=== PATIENT | female | born 1940 | race Caucasian/White ===

== ENCOUNTER 2018-12-22 07:47 | Inpatient (IN) | payer MEDICARE, OTHER ==
[2018-12-22] VITALS (14 sets, daily range): BP systolic 77–157; BP diastolic 46–84; PULSE 55–64; TEMP 97.3–97.9
[~2018-12-22] VITALS: Ht 162.6 cm; Wt 90.1 kg
[~2018-12-22 07:47] MED LIST: FOLIC ACID 40400 MCG PO; FOLIC ACID0.4 MG PO; MODURETIC 5/501 TAB PO; SLOW FE47.5 MG PO; VITAMIN C BUFF500 MG PO
[2018-12-22] MEDS ORDERED: ELIQUIS 5MG PO (08:31)
[2018-12-22 08:32] LABS: HEMATOCRIT 44.2 % (37.0-47.0); HEMOGLOBIN 14.3 g/dl (12.5-16.0); MEAN CELL VOLUME 87 fl (80.0-100.0); MEAN CORPUSCULAR HEMOGLOBIN 28 pg (27.0-31.0); MEAN CORPUSCULAR HGB CONC 32 g/dl (33.0-37.0); MEAN PLATELET VOLUME 9.6 fl (7.4-10.4); PLATELET COUNT 233 K/mm3 (130-400); RED BLOOD COUNT 5.07 M/mm3 (4.10-5.30); REDCELL DISTRIBUTION WIDTH-CV 13.2 % (11.5-14.5)
[2018-12-22] MEDS ORDERED: CATAPRES 0.1MG0.1 MG PO (08:32)
[2018-12-22] MEDS ORDERED: NORVASC 5MG5 MG/TAB PO (08:33)
[2018-12-22] MEDS ORDERED: FLONASEALLERGY NS (08:34)
[2018-12-22] MEDS ORDERED: MAGNESIUM CITR100 MG PO (08:34)
[2018-12-22 08:35] LABS: INR 0.9 (0.8-3.0); PROTHROMBIN TIME 10.4 SECONDS (9.7-12.8)
[2018-12-22 08:41] LABS: CALCIUM 9.3 mg/dL (8.4-10.2); CREATININE, serum 0.53 (0.52-1.25); POTASSIUM 4.4 mmol/L (3.4-5.0)
--- NOTE | 2018-12-22 09:13 | NUR ---
Pt to procedure,report to Teddy Siegel.
--- NOTE | 2018-12-22 09:22 | NUR ---
SEE MERGE DOCUMENTATION FOR MEDICATION ADMINISTRATION TIMES AND INTRA/POST PROCEDURE SEDATION ASSESSMENTS.
--- NOTE | 2018-12-22 11:30 | NUR ---
PATIENT ADMITTED FLOOR AT THIS TIME. ICE PACK PROVIDED FOR SWELLING. DRESSING CLEAN DRY AND IN TACT, POST OP VITALS SIGNS BEING OBTAINED, HOB 30 DEGREES, PROVIDED PATIENT WITH NEW SOTALOL DOSE AT THIS TIME, SLING IN TACT TO LEFT ARM.
--- NOTE | 2018-12-22 16:00 | NUR ---
PATIENT COMPLAINING OF SOME EPIGASTRIC PAIN AT 1320, SOME SHORTNESS OF BREATH WAS NOTED WELL, OBTAINED ORDER FOR MAALOX, PROVIDED TO PATIENT, SOME NOTED PAIN RELIEF AFTERWARDS, WILL CONTINUE TO MONITOR.
--- NOTE | 2018-12-22 17:00 | NUR ---
PATIENT STILL EXHIBITING COMPLAINTS OF PAIN TO UPPER GASTRIC AREA, WILL PROVIDE PRN NORCO, ATTEMPTED TO CALL PROVIDER FOR NEW ORDER AND UNABLE TO GET AHOLD OF HIM AT THIS TIME. PATIENT HAS ICE TO CHEST AND UPPER GASTRIC AREA. WILL CONTINUE TO MONITOR.
--- NOTE | 2018-12-22 19:00 | NUR ---
THIS NURSE PRECEPTING NEVAEH GREENBERG. THIS NURSE VERIFIED AND WENT THROUGH ALL CHATING WITH NEVAEH THIS SHIFT
--- NOTE | 2018-12-22 19:26 | NUR ---
REPORT GIVEN TO MARIAJOSE GREENBERG.
--- NOTE | 2018-12-22 20:10 | NUR ---
Shift assessment complete. Pt resting in bed, awake, a&o, cooperative c cares. Pt continued c/o pain to chest R >L. Pt also c/o being "very short of breath"; pt talks slowly in broken sentences to this RN but has been observed speaking w family et talking on her cell phone in full relaxe sentences. Public Affairs Specialist on-call notified et new orders recieved. Pt provided c Buckley, Temazepam et Maalox at this time. Pacemaker site et loop recorder removal site to L chest s complication, dressings C/D/I. Ice packs in place and sling to LUE. Tele in place. Pt denies further needs. Call light in reach, will monitor closely.
[2018-12-23] VITALS (7 sets, daily range): BP systolic 101–127; BP diastolic 50–71; PULSE 59–81; TEMP 97.2–98.1
--- NOTE | 2018-12-23 05:52 | NUR ---
Pt resting in bed. Pt has rested well this shift c few needs. PRN pain aviation medicine specialist x2 this shift for chest discomfort. Pt has denied continued SOB. Pt denies needs at this time. Call light in reach.
[2018-12-23 07:08] LABS: BASO % 0.2 % (0.0-2.0); EOS # 0.2 (0.0-0.7); EOS % 1.8 % (0-4.0); GRAN # 7.5 (1.4-6.5); GRAN % 70.8 % (42.2-75.2); HEMATOCRIT 39.6 % (37.0-47.0); HEMOGLOBIN 12.8 g/dl (12.5-16.0); LYMPH # 1.9 (1.2-3.4); LYMPH % 18.5 % (20.0-51.0); MEAN CELL VOLUME 88 fl (80.0-100.0); MEAN CORPUSCULAR HEMOGLOBIN 29 pg (27.0-31.0); MEAN CORPUSCULAR HGB CONC 32 g/dl (33.0-37.0); MEAN PLATELET VOLUME 10.3 fl (7.4-10.4); MONO # 0.9 (0.1-0.6); MONO % 8.3 % (1.7-9.3); PLATELET COUNT 205 K/mm3 (130-400); RED BLOOD COUNT 4.49 M/mm3 (4.10-5.30)
[2018-12-23 07:21] LABS: CALCIUM 8.3 mg/dL (8.4-10.2); CREATININE, serum 0.53 (0.52-1.25); MAGNESIUM 2.3 mg/dL (1.6-2.3)
--- NOTE | 2018-12-23 11:52 | NUR ---
SHAWNA met with the patient and patient's daughters to discuss discharge plan. The patient lives alone in [place]. She states that her daughter, Vikram, lives in [place]. She reports independence with ADLs and has a cane, walker, wheelchair, [id number], and stool riser. The patient's PCP is Dr. Jose Peacock and she receives her medications at [facility]. She reports no difficulties obtaining her meds. The patient did have questions about how much her new medication, Sotalol, would cost. SW to [facility] at her preferred pharmacy. The patient does not have advanced directives in EMR, but the patient reports that she does have them completed and that her daughter, Vikram, is her DPOA-HC. The patient's other daughter reports that Vikram could fax a copy of it to the hospital. SHAWNA provided the daughter with medical's fax number. The patient plans to return home upon discharge. No additional needs at this time.
--- NOTE | 2018-12-23 13:00 | NUR ---
PT WAS UP WALKING IN HALLS TODAY, DAUGHTERS ASSISTING PT. THIS NURES SAW PT UP WALKING, PT WAS NEAR ROOM 354 IN [place], SO PT DID WALK A DISTANCE. WAS FIRST TIME UP WALKING FARTHER THEN ROOM SINCE PROCEDURE YESTERDAY.
--- NOTE | 2018-12-23 16:00 | NUR ---
PT HAD C/O PAIN THROUGHOUT SHIFT AND RECIEVED PRN NORCO ABLE TO. THIS NURSE DID CHECK ON PT THIS AFTERNOON AT APPROX 1400, PT APPEARED TO BE SLEEPING, WITH CPAP ON, 30 MINS LATER PT CALLED SUPERVISOR [employer] LIGHT AND STATED THAT HE PAIN WAS OUT OF CONTROL AND THAT SHE NEEDED PAIN MEDICATION AND THAT SHE WAS CONTINUING TO HAVE PAIN WHEN BREATHING AND RT CHEST PAIN THAT WAS STARTING TO HAVE PAIN EXTEMINDING TO THE LEFT SIDE NEAR HE PACEMAKER. THIS NURSE ASSESSED INSITION SITE, NO ABNORMALITIES NOTED. PT CONTINUES TO HAVE ICE ON LT SIDE AND RT SIDE OF CHEST. FAMILY WAS OUT OF FACILITY THIS AFTERNOON AND RETURNED APPROX 1500. PT DAUGHTERS UPSET STATING THAT THEY KNOW THE PT AND SHE IS NOT HEALING TYPICALLY AND THAT THEY THINK THE SOTOLOL IS CAUSING THE ISSUES OR THAT THE PT MAY NEED A CT, AND STATED THAT SHE MITE HAVE A BLOOD CLOT. THIS NURSE CALL DOCTOR VONDA THAT WAS SUPERVISOR [employer]AR TODAY ABOUT PT AND C/O PAIN AND INFORMED OF SITUATION. PROVIDER ORDERED TORADOL AND ATIVAN PRN. VONDA STATED THAT SINCE SHE WAS STARTED ON THE ELIQUIS THAT SHE DIDNT FEEL THE NEED FOR A CT, AND THAT IF SHE HAD A BLOOD CLOT THE ELIQUIS WOULD BE THE PREVENTION FOR IT. THIS NURSE ADMINITERED ATIVAN AND TORADOL TO PT. THIS NURSE HAS PLACED PT ON O2 AT THIS TIME SATS WHERE 92%, PT WAS 97% AFTERWARD.
--- NOTE | 2018-12-23 19:04 | NUR ---
PT STATED THAT THE SHE WAS FEELING BETTER SINCE THE ATIVAN, IT HAD HELPED HER TO CALM DOWN TO CATCH HER BREATH MORE. THE TORADOL HELPED CONTROL THE MAIN MORE WELL. STATED SHE WAS CURRENTLY FEELING BETTER, NOT 100% BUT ABLE TO BREATHE WITHOUT PAIN.
[2018-12-24 03:28] VITALS: BP 114/56; PULSE 59; TEMP 98
--- NOTE | 2018-12-24 05:10 | NUR ---
DAILY EKG OBTAINED SHOWING ST ELEVATION. NEW CHANGES FROM 12 LEAD EKG ON 12/23/18. DR FERRARI NOTIFIED. ORDER RECEIVED FOR TROPONIN. NO OTHER ORDERS RECEIVED AT THIS TIME.
[2018-12-24 06:33] LABS: HEMOGLOBIN 11.6 g/dl (12.5-16.0); MEAN CELL VOLUME 87 fl (80.0-100.0); MEAN CORPUSCULAR HEMOGLOBIN 28 pg (27.0-31.0); MEAN CORPUSCULAR HGB CONC 33 g/dl (33.0-37.0); MEAN PLATELET VOLUME 10.5 fl (7.4-10.4); PLATELET COUNT 174 K/mm3 (130-400); RED BLOOD COUNT 4.09 M/mm3 (4.10-5.30); REDCELL DISTRIBUTION WIDTH-CV 13.2 % (11.5-14.5)
[2018-12-24 06:40] LABS: ANION GAP 10 mmol/L (7-16); BLOOD UREA NITROGEN 18 mg/dL (7-17); CALCIUM 8.2 mg/dL (8.4-10.2); CARBON DIOXIDE 26 mmol/L (22-30); GLUCOSE 111 mg/dL (74-106); HEMATOCRIT 35.6 % (37.0-47.0); MAGNESIUM 2.3 mg/dL (1.6-2.3); POTASSIUM 4.1 mmol/L (3.4-5.0); SODIUM 125 mmol/L (137-145)
[2018-12-24 06:42] LABS: CHLORIDE 89 mmol/L (98-107)
[2018-12-24 06:51] LABS: TROPONIN-I < 0.012 ng/mL (0.000-0.035)
[2018-12-24 07:15] LABS: BAND 8 % (0-10); EOSINOPHIL 3 % (0-4); LYMPHOCYTE 26 % (20.0-51.0); NEUTROPHILS 60 % (42.0-75.2)
[2018-12-24 07:16] LABS: PLATELET ESTIMATE NORMAL (NORMAL)
--- NOTE | 2018-12-24 07:47 | NUR ---
TROPONIN RECEIVED WNL. REPORTS RELIEF OF PAIN AFTER IV TORADOL.
--- NOTE | 2018-12-24 08:30 | NUR ---
Assessment complete. Pt ambulating in room with assist from daughter, reports pain to left chest 6-7 out of 10 on pain scale that worsens with movement. Pt also reports dyspnea with exertion, eye twitching and feeling shaky in upper ext. Saline lock IV to left forearm without s/s of complications. No further needs reported. Call light in reach.
[2018-12-24 08:35] VITALS: BP 133/67; PULSE 60; TEMP 98.3
[2018-12-24 11:28] VITALS: BP 136/60; PULSE 61; TEMP 98.3
--- NOTE | 2018-12-24 13:23 | NUR ---
SW informed that doctor is recommended post acute rehab. SW met with patient and daughters about choices. Patient and daughters prefer 1. [facility] and 2. [facility]. PT/OT will evaluate patient. SHAWNA will fax referral to [facility] and inform [facility] director about patient choice.
[2018-12-24 15:52] LABS: CREATININE, serum 0.64 (0.52-1.25)
[2018-12-24 16:29] VITALS: BP 103/66; PULSE 53; TEMP 97.2
--- NOTE | 2018-12-24 16:55 | NUR ---
SHAWNA faxed Gisell at [facility] the patient's therapy notes. SHAWNA awaiting their screens.
--- NOTE | 2018-12-24 18:00 | NUR ---
Pt sitting up in bed, reports pain to left chest 5 out of 10, requests to wait to take pain medication closer to bedtime. Now dose of Lasix administered per orders. Reviewed fluid restriction again with pt and pt's daughters. No further needs reported. Call light in reach.
[2018-12-24 19:51] VITALS: BP 105/51; PULSE 72; TEMP 97.9
--- NOTE | 2018-12-24 21:00 | NUR ---
PT SITTING IN CHAIR WITH DAUGHTER AT BEDSIDE. REPORTS SOA WITH WALKING. CPAP IN ROOM READY FOR PT WHEN SLEEPING. PT REPORTS BACK PAIN- PRN TYLENOL GIVEN. CHEST INSISIONS ARE DCI. VSS. REPORTS NO NEEDS AT THIS TIME CALL LIGHT IN REACH
[2018-12-25] VITALS (7 sets, daily range): BP systolic 90–134; BP diastolic 54–68; PULSE 59–69; TEMP 97.5–98.4
--- NOTE | 2018-12-25 04:56 | NUR ---
PT HAD AN UNEVENTFUL NIGHT. REPORTED BACK PAIN AT THE BEGINNING OF THE NIGHT-PRN TYLENOL RELIEVED. HEAT PACK GIVEN FOR BACK. ICE PACK GIVEN FOR CHEST SITES. INCISION SITE X2 DCI. REPORTS NO PAIN AT SITES. PT CPAP ON. TELE ON. REPORTS SOA WHILE WALKING. NO NEEDS AT THIS TIME. CALL LIGHT IN REACH
[2018-12-25 06:28] LABS: BASO % 0.2 % (0.0-2.0); EOS # 0.2 (0.0-0.7); EOS % 2.3 % (0-4.0); GRAN # 6.4 (1.4-6.5); GRAN % 60.7 % (42.2-75.2); HEMOGLOBIN 11.3 g/dl (12.5-16.0); LYMPH # 2.4 (1.2-3.4); LYMPH % 22.4 % (20.0-51.0); MEAN CELL VOLUME 85 fl (80.0-100.0); MEAN CORPUSCULAR HEMOGLOBIN 29 pg (27.0-31.0); MEAN CORPUSCULAR HGB CONC 34 g/dl (33.0-37.0); MEAN PLATELET VOLUME 10.5 fl (7.4-10.4); MONO # 1.4 (0.1-0.6); MONO % 13.5 % (1.7-9.3); PLATELET COUNT 175 K/mm3 (130-400); RED BLOOD COUNT 3.93 M/mm3 (4.10-5.30); REDCELL DISTRIBUTION WIDTH-CV 12.9 % (11.5-14.5)
[2018-12-25 06:37] LABS: CALCIUM 8.2 mg/dL (8.4-10.2); CREATININE, serum 0.75 (0.52-1.25); HEMATOCRIT 33.4 % (37.0-47.0); MAGNESIUM 2.2 mg/dL (1.6-2.3); POTASSIUM 3.6 mmol/L (3.4-5.0)
--- NOTE | 2018-12-25 07:16 | NUR ---
report given to nikko roblero
--- NOTE | 2018-12-25 08:10 | NUR ---
Assessment complete. Pt sitting up in bed, A&O x 3. Breath sounds clear but diminished in bases bilat. BS active x 4. Pt reports pain to chest is better than yesterday rating 4 out of 10 on pain scale, reports back pain 7 out of 10, denies need for opioids at this time, will see how the sched medication works. Incisions x 2 to left chest region CDI. Ice pack to chest. No further needs reported. Call light in reach.
[2018-12-25 10:20] LABS: ALBUMIN 3.4 gm/dL (3.5-5.0); BILIRUBIN,TOTAL 0.6 mg/dL (0.0-1.0); TOTAL PROTEIN 6.5 gm/dL (6.4-8.2)
--- NOTE | 2018-12-25 10:24 | NUR ---
Patient is being followed byt [facility] for post acute rehab and also [facility]. SW faxed updates to [facility]. SW will continue to follow.
[2018-12-25 10:38] LABS: BILIRUBIN UNCONJUGATED 0.5 mg/dL (0.0-1.1)
--- NOTE | 2018-12-25 12:06 | NUR ---
First visit from the full time babysitter. No needs right now.
--- NOTE | 2018-12-25 13:30 | NUR ---
Pt reports increased pain across chest and upper back, 7 out of 10 , requests PRN [place] 1 tab to decrease drowsiness later. Warm pack also provided for pt's back.
--- NOTE | 2018-12-25 19:54 | NUR ---
PT RESTING IN BED A+OX4. REPORTS BACK PAIN- PRN TYLENOL GIVEN.- REPORTS RELIEF. FAMILY AT BEDSIDE. PT REPORTS TRYING NOT TO DRINK WATER- GARTORADE ONLY. VSS. CPAP USED AT NIGHT. TELE ON. LUNG SOUNDS DIMINISHES- BASES FINE CRACKLES. UPPER LUNG BERUMEN CLEAR. PT REPORTS SOA. SAT STABLE. NO NEEDS AT THIS TIME. CALL LIGHT IN REACH.
[2018-12-26 04:15] VITALS: BP 125/64; PULSE 66; TEMP 97.7
--- NOTE | 2018-12-26 05:59 | NUR ---
PT HAD AN UNEVENTFUL NIGHT. REPORTED PAIN AT THIS BEGINNING OF THE NIGHT PRN TYLENOL RELIEF TO TOLERABLE LEVEL. IV FLUSHES WELL, NO REDNESS, NO SWELLING. CPAP ON. TELE ON. CRACKLES NOTED IN LUNG BASES. NO OTHER NEEDS AT THIS TIME.CALL LIGHT IN REACH. BED ALRM ON
--- NOTE | 2018-12-26 07:14 | NUR ---
REPORT GIVEN TO YARI FREEMAN
[2018-12-26 07:39] VITALS: BP 95/47; PULSE 74; TEMP 98.1
[2018-12-26 07:39] LABS: BASO % 0.4 % (0.0-2.0); EOS # 0.3 (0.0-0.7); EOS % 4.2 % (0-4.0); GRAN # 4.5 (1.4-6.5); GRAN % 57.4 % (42.2-75.2); HEMOGLOBIN 11.4 g/dl (12.5-16.0); LYMPH # 1.9 (1.2-3.4); LYMPH % 23.8 % (20.0-51.0); MEAN CELL VOLUME 86 fl (80.0-100.0); MEAN CORPUSCULAR HEMOGLOBIN 29 pg (27.0-31.0); MEAN CORPUSCULAR HGB CONC 34 g/dl (33.0-37.0); MEAN PLATELET VOLUME 10.2 fl (7.4-10.4); MONO # 1.1 (0.1-0.6); MONO % 13.6 % (1.7-9.3); PLATELET COUNT 200 K/mm3 (130-400); RED BLOOD COUNT 3.96 M/mm3 (4.10-5.30)
[2018-12-26 07:58] LABS: CALCIUM 8.5 mg/dL (8.4-10.2); CREATININE, serum 0.57 (0.52-1.25); MAGNESIUM 2.1 mg/dL (1.6-2.3); POTASSIUM 4.2 mmol/L (3.4-5.0)
[2018-12-26 11:42] VITALS: BP 114/59; PULSE 72; TEMP 98.9
--- NOTE | 2018-12-26 12:00 | NUR ---
PT HAD UNEVENTFUL MORNING. WALKED IN [place] WITH HYDROELECTRIC MACHINERY MECHANIC. PT STATED THAT SHE ONLY HAD MINIMAL PAIN RATED 2-3, AND RECIEVED SCHEDULED MOTRIN WITH [facility]. NO OTHER ISSUES OR CONSERNS VOICED.
[2018-12-26] MEDS ORDERED: CEPHALEXIN500 M1 PO (12:10)
[2018-12-26] MEDS ORDERED: BETAPACE 80MG80 MG PO (12:11)
[2018-12-26] MEDS ORDERED: COLCRYS0.6 MG PO (12:12)
[2018-12-26] MEDS ORDERED: IBU800 M1 PO (12:13)
[2018-12-26] MEDS ORDERED: TYLENOL 325MG325 MG PO (12:14)
[2018-12-26] MEDS ORDERED: COLACE 100100 MG/CAP PO (12:15)
[2018-12-26] MEDS ORDERED: NORCO 325 MG-51 TAB PO (12:16)
[2018-12-26] MEDS ORDERED: LASIX 20MG TABL20 MG PO (12:25)
--- NOTE | 2018-12-26 13:00 | NUR ---
SHAWNA met with patient about discharge today. Patient was accepted to [facility] for [facility], PT and OT. Patient's daughter Juliana was informed as well. SHAWNA presented IM to patient, she signed but did not want a copy. Patient will picked up by [facility] at 1:30pm. SHAWNA also faxed discharge orders.
--- NOTE | 2018-12-26 13:50 | NUR ---
[facility] ARRIVED TO TRANSPORT PT TO [facility] AT THIS TIME.
--- NOTE | 2018-12-26 14:00 | NUR ---
REPORT CALLED TO TRISTA DIAZ TO THE [facility] AT THIS TIME.
== END 2018-12-26 14:00 | DRG 243 ==
LOC: COL.CAR 07:47 → MEDICAL 11:13
PROVIDERS: Nurse Practitioner; Physician Assistant; ADMIT Internal Medicine Cardiovascular Disease
PROC: 0JH606Z Insertion of Pacemaker, Dual Chamber into Chest Subcutaneous Tissue and Fascia, Open Approach (ICD-10-PCS; principal; 2018-12-22)
PROC: 02HK3JZ Insertion of Pacemaker Lead into Right Ventricle, Percutaneous Approach (ICD-10-PCS; 2018-12-22)
PROC: 02H63JZ Insertion of Pacemaker Lead into Right Atrium, Percutaneous Approach (ICD-10-PCS; 2018-12-22)
PROC: 0JPT02Z Removal of Monitoring Device from Trunk Subcutaneous Tissue and Fascia, Open Approach (ICD-10-PCS; 2018-12-22)
DX: I48.0 Paroxysmal atrial fibrillation (principal); I31.9 Disease of pericardium, unspecified; E87.1 Hypo-osmolality and hyponatremia; J98.11 Atelectasis; I10 Essential (primary) hypertension; J45.909 Unspecified asthma, uncomplicated; G47.33 Obstructive sleep apnea (adult) (pediatric); M19.90 Unspecified osteoarthritis, unspecified site; G43.909 Migraine, unspecified, not intractable, without status migrainosus; R42 Dizziness and giddiness; M48.54XD Collapsed vertebra, not elsewhere classified, thoracic region, subsequent encounter for fracture with routine healing; I47.1 Supraventricular tachycardia; Z95.818 Presence of other cardiac implants and grafts
CPT/HCPCS: 99223; 99231-AI; 99233-AI; 99239; A9284; C1785; C1894; C1898; J0690; J1885; J1940; J2250; J3010; J7030; Q9967